=== PATIENT | male | born 1940 | race Caucasian/White ===

== ENCOUNTER 2021-06-07 10:00 | Outpatient (CLI) | payer OTHER ==
[~2021-06-07 10:00] MED LIST: AMOX1TAB12 PO; NAPR500T14 PO
== END 2021-06-07 10:08 | disposition home or self-care (01) ==
LOC: MRI 10:00
PROVIDERS: ATTEND Internal Medicine Gastroenterology
DX: K57.90 Diverticulosis of intestine, part unspecified, without perforation or abscess without bleeding (principal); K57.32 Diverticulitis of large intestine without perforation or abscess without bleeding

== ENCOUNTER 2024-07-08 14:02 | Inpatient (IN) | payer OTHER ==
[~2024-07-08] VITALS: Ht 152.4 cm; Wt 81.6 kg
[2024-07-08] MEDS ORDERED: TAMSULOSIN HCL0.4 MG PO (14:58)
[2024-07-08] MEDS ORDERED: ROSUVASTATIN CA10 MG PO (14:58)
--- NOTE | 2024-07-08 14:58 | NUR ---
PTE REFIEE DOLOR ABDOMINAL DESDE HERIBERTO. PTE REFIERE PADESER DE DIVERTICULOS.SE LE JAMILAH S/V Y SE UBICA EN PASILLO.
[2024-07-08] MEDS ORDERED: FAMOTIDINE/PF 20 MG/2 ML VIAL IV ONE (15:30)
[2024-07-08] MEDS ORDERED: 0.9 % SODIUM CHLORIDE 500 ML IV ONE (15:30)
[2024-07-08] MEDS ORDERED: ONDANSETRON HCL 2 MG/ML VIAL IV ONE (15:45)
[2024-07-08] MEDS ORDERED: MEPERIDINE HCL/PF 25 MG/ML VIAL IV ONE (15:45)
[2024-07-08 16:10] LABS: HEMATOCRIT 41.8 % (39.0-48.0); HEMOGLOBIN 14.6 g/dL (13-16.00); MEAN CELL VOLUME 89.8 fL (80.0-100.00); MEAN CORPUSCULAR HEMOGLOBIN 31.5 pg (27.00-32.0); PLATELET COUNT 246 K/uL (150-450); RED BLOOD COUNT 4.65 M/uL (4.00-6.00); RED CELL DISTRIBUTION WIDTH 13.8 % (11.5-14.5)
--- NOTE | 2024-07-08 16:12 | NUR ---
SE ORIENTA PTE SOBRE TX MEDICO EL CUAL REFIERE ENTENDER.SE LE EXTRAEN MUESTRAS BAJO MEDIDAS ASEPTICAS,SE CANALIZA Y SE ADMINISTRAN MEDICAMENTOS KASANDRA ORDEN MEDICA.
[2024-07-08 16:40] LABS: ALBUMIN 3.5 gm/dL (3.4-5.0); BILIRUBIN TOTAL 1.07 mg/dL (0.3-1.2); CALCIUM 9.9 mg/dL (8.5-10.1); CREATININE SERUM 0.73 mg/dL (0.70-1.30); GFR 101.87; GLOBULINA 4.4 G/DL (2.4-3.5); POTASSIUM 4.58 mEq/L (3.5-5.1); TOTAL PROTEIN 7.9 gm/dL (6.4-8.2)
[2024-07-08 17:37] LABS: URINE APPEARANCE Clear; URINE BILIRRUBIN Negative (NEGATIVE); URINE BLOOD Negative; URINE COLOR Yellow; URINE GLUCOSE Negative (NEGATIVE); URINE KETONE Negative (NEGATIVE); URINE LEUKOCYTE Negative; URINE NITRATE Negative; URINE PROTEIN Negative (NEGATIVE); URINE UROBILINOGEN 0.2 E.U./dl
[2024-07-08 17:40] LABS: URINE BACTERIA 18.8 uL (0.0-1933); URINE RBC 3.8 uL (0.0-20.8); URINE WBC 2.1 uL (0.0-23.2)
[2024-07-08 17:42] LABS: URINE CAST 0.15 uL (0.0-1.40); URINE EPITHELIAL CELLS 1.3 uL (0.0-38.8)
[2024-07-08] MEDS ORDERED: PIPERACILLIN/TAZOBACTAM SODIUM 3.375 GM in DEXTROSE 5 % IN WATER 100 ML IV SCH (19:53)
[2024-07-08] MEDS ORDERED: MORPHINE SULFATE 4 MG/ML VIAL IV SCH (20:00)
[2024-07-08] MEDS ORDERED: 0.9 % SODIUM CHLORIDE 1,000 ML IV SCH (20:00)
[2024-07-08] MEDS ORDERED: HYOSCYAMINE SULFATE 0.125 MG TAB.SUBL PO ONE (20:00)
[2024-07-08] MEDS ORDERED: MORPHINE SULFATE 4 MG/ML CARTRIDGE IV ONE (20:00)
[2024-07-08] MEDS ORDERED: MORPHINE SULFATE 4 MG/ML VIAL IV PRN (20:00)
[2024-07-08] MEDS ORDERED: ONDANSETRON HCL 4 MG in 0.9 % SODIUM CHLORIDE 50 ML IV PRN (20:00)
[2024-07-08 20:47] VITALS: BP 136/70; O2SAT 97
[2024-07-08 21:13] LABS: INR 1.05; PARTIAL THROMBOPLASTIN TIME 28.3 SECONDS (22.0-34.0); PROTHROMBIN TIME 11.4 SECONDS (9.0-11.5)
[2024-07-09 01:01] VITALS: BP 119/75; O2SAT 98
[2024-07-09 08:27] VITALS: BP 113/61
[2024-07-09] MEDS ORDERED: DOXAZOSIN MESYLATE 2 MG TABLET PO SCH (09:00)
[2024-07-09] MEDS ORDERED: ENOXAPARIN SODIUM 40 MG/0.4 ML SYRINGE SUBCUTANEO SCH (09:00)
[2024-07-09] MEDS ORDERED: FAMOTIDINE/PF 20 MG in 0.9 % SODIUM CHLORIDE 8 ML IV PUSH SCH (09:00)
[2024-07-09 09:04] VITALS: BP 121/77; O2SAT 100
[2024-07-09] MEDS ORDERED: MORPHINE SULFATE 4 MG/ML CARTRIDGE IV PRN (12:00)
[2024-07-09] MEDS ORDERED: INTESTINEX680 M1 PO (12:44)
[2024-07-09] MEDS ORDERED: CIPRO500 MG PO (12:44)
[2024-07-09] MEDS ORDERED: METRONIDAZOLE500 MG PO (12:44)
[2024-07-09] MEDS ORDERED: PANTOPRAZOLE SO20 MG PO (12:45)
[2024-07-09] MEDS ORDERED: LEVSIN0.125 MG PO (12:45)
[2024-07-09] MEDS ORDERED: TAMS0.4C PO (12:48)
[2024-07-09] MEDS ORDERED: TRAM1TAB98 PO (12:48)
== END 2024-07-09 14:06 | disposition home or self-care (01) | DRG 392 ==
LOC: ER 14:04 → MEDI 21:11
PROVIDERS: General Practice; Nurse Practitioner Family; ADMIT Internal Medicine; ATTEND Internal Medicine
PROC: BW21YZZ Computerized Tomography (CT Scan) of Abdomen and Pelvis using Other Contrast (ICD-10-PCS; principal; 2024-07-08)
DX: K57.92 Diverticulitis of intestine, part unspecified, without perforation or abscess without bleeding (principal); Z20.822 Contact with and (suspected) exposure to COVID-19